=== PATIENT | female | born 1960 | race Caucasian/White ===

== ENCOUNTER → 2017-12-18 | Day surgery (SDC) | payer BC ==
--- NOTE | 2017-12-15 13:59 | Diagnostic Imaging Report ---
PROCEDURE: X-RAY CHEST, TWO VIEWS COMPARISON: 07/27/2007. INDICATIONS: PREOP - LEFT HIP SX FINDINGS: The lungs are well-inflated. No focal consolidation, pleural effusion, or pneumothorax. Cardiomediastinal contour and pulmonary vasculature are within normal limits. No acute osseous abnormality. Surgical clips project over the upper abdomen on the lateral radiograph, likely related to prior cholecystectomy. CONCLUSION: No acute thoracic abnormality. Dictated by: Everardo Terrazas M.D. on 12/15/2017 at 14:09 Electronically approved by: Everardo Terrazas M.D. on 12/15/2017 at 14:09
[~2017-12-18] MED LIST: ADDERALL 30 MG30 MG PO; BUPIVACAINE HCL 0.5% 10ML MPF VIAL INJ ONE; DICYCLOMINE HCL20 MG PO; FENTANYL CITRATE/PF 100MCG/2 ML INJ ONE; HYDROCODON-ACE1 EA11 PO; HYDROCODON-ACE1 EA12 PO; IOPAMIDOL 610MG/1ML 300 MG/ML VIAL IV ONE; LIDOCAINE HCL 1% LOCAL INJ 20 ML VIAL ONE; MIDAZOLAM HCL 2 MG/2 ML VIAL ONE; MIRALAX17 GM PO; NEXIUM40 MG PO; PANTOPRAZOLE SO40 MG PO; PROPOFOL IV EMULSION 10 MG/ML 20 ML VIAL ONE; SENNA-S TABLET1 EA PO; SYNTHROID137 MCG PO; TRIAMCINOLONE ACET 40 MG/ML VIAL ONE; ZOFRAN4 MG PO; [UNRECOGNIZED DRUG - OTHER] PO
--- OUTSIDE RECORDS SUMMARY | 2017-12-18 05:06 | XMS REPORT ---
Author Author [facility] Address Unknown Phone Unavailable Care Team Providers Care Hockey Player Name Role Phone TAINAKATH HUNTER Unavailable Unavailable Problems This patient has no known problems. Allergies, Adverse Reactions, Alerts This patient has no known allergies or adverse reactions. Medications This patient has no known medications. Results Test Description Test Time Test Comments Text Results Atomic Results Result Comments CHEST 2 VIEWS [place] [address] Patient Name: REMBERTO ASHBY MR #: [id number] : 1960 Age/Sex: 57/F Req # : [id number] Adm Physician: Ordered by: JERMAINE MOORE MD Report #: [id number] Location: OR Room/Bed: Procedure: [id number] DX/CHEST 2 VIEWS Exam Date: 12/15/17 Exam Time: 1342 REPORT STATUS: Signed PROCEDURE: X-RAY CHEST, TWO VIEWS COMPARISON: 07/27/2007. INDICATIONS: PREOP - LEFT HIP SX FINDINGS: The lungs are well-inflated. No focal consolidation, pleural effusion, or pneumothorax. Cardiomediastinal contour and pulmonary vasculature are within normal limits. No acute osseous abnormality. Surgical clips project over the upper abdomen on the lateral radiograph, likely related to prior cholecystectomy. CONCLUSION: No acute thoracic abnormality. Dictated by: Kath Rivera M.D. on 12/15/2017 at 14:09 Electronically approved by: Kath Rivera M.D. on 12/15/2017 at 14:09 Dictated By : KATH RIVERA MD 140 Transcribed By: LISA on 12/15/171408 COPY TO: JERMAINE MOORE MD
--- NOTE | 2017-12-18 15:03 | Operative Report ---
DATE OF PROCEDURE: December 18, 2017 PREOPERATIVE DIAGNOSIS: Osteoarthritis, left hip. POSTOPERATIVE DIAGNOSIS: Osteoarthritis, left hip. PROCEDURE: Fluoroscopic-guided corticosteroid injection, left hip. INDICATIONS: The patient is a 57-year-old lady who has arthritic changes in her left hip. The findings and options have been discussed. She does not have such severe arthritis that she would want to go through a hip replacement at this time. She would like to try a corticosteroid injection. The risks and benefits were explained. She stated she understood and wished to proceed. DESCRIPTION OF PROCEDURE: The patient was brought to the procedure room. She was given a MAC anesthetic. Her left hip was prepped and draped in a sterile manner. A preoperative time out was performed. A C-arm image intensifier was used to assist in placing an 18-gauge needle into the inferior recess of the left hip joint. A small amount of synovial fluid was aspirated. Less than 1 mL of radiopaque dye was injected to provide radiographic confirmation of intra-articular placement. A mixture of 10 mL of 1/2 percent Marcaine and 40 mg of Depo-Medrol were then injected into the hip joint. The needle was retrieved, and a Band-Aid was applied. She was transported to the recovery room in stable condition. Job#: [id number]
== END | disposition home or self-care (01) ==
LOC: OR 05:04
PROVIDERS: ATTEND Specialist
DX: M16.12 Unilateral primary osteoarthritis, left hip (principal); E03.9 Hypothyroidism, unspecified; R01.1 Cardiac murmur, unspecified; E78.5 Hyperlipidemia, unspecified; E06.3 Autoimmune thyroiditis; Z01.810 Encounter for preprocedural cardiovascular examination; Z01.818 Encounter for other preprocedural examination; Z87.891 Personal history of nicotine dependence; Z68.34 Body mass index [BMI] 34.0-34.9, adult
CPT/HCPCS: 20610; 71046; 77002; 93005; J2250; J3301; Q9967; J2001

== ENCOUNTER 2019-09-23 06:28 | Inpatient (IN) | payer OTHER ==
[2019-09-19 16:50] LABS: BASOPHILS # (AUTO) 0.1 (0.0-0.1); BASOPHILS % 1.5 % (0.0-1.0); EOSINOPHILS # (AUTO) 0.2 (0.0-0.4); EOSINOPHILS % 2.2 % (0.0-6.0); HEMATOCRIT 42.4 % (34.2-44.1); HEMOGLOBIN 13.9 g/dL (12.0-16.0); LYMPHOCYTES # (AUTO) 2.4 (1.0-3.2); LYMPHOCYTES % 33.9 % (18.0-39.1); MEAN CORPUSCULAR HEMOGLOBIN 28.7 pg (28-32); MEAN CORPUSCULAR HGB CONC 32.8 g/dL (31-35); MEAN CORPUSCULAR VOLUME 87.4 fL (81-99); MONOCYTES # (AUTO) 0.5 (0.2-0.8); NEUTROPHILS % 55.1 % (38.7-80.0); PLATELET COUNT 328 x10e3/uL (140-360); RED BLOOD COUNT 4.85 x10e6/uL (3.6-5.1); RED CELL DISTRIBUTION WIDTH 12.8 % (11.7-14.4)
[2019-09-22 04:00] VITALS: BP 100/49
[~2019-09-23] VITALS: Ht 160 cm; Wt 90.5 kg
[~2019-09-23 06:28] MED LIST changes: +BACITRACIN 50,000 UNIT VIAL ONE; +BIOTIN1000 MCG PO; -BUPIVACAINE HCL 0.5% 10ML MPF VIAL INJ ONE; +ESTRADIOL1 MG PO; -FENTANYL CITRATE/PF 100MCG/2 ML INJ ONE; +FISH OIL 1,0001 EAC2 PO; -IOPAMIDOL 610MG/1ML 300 MG/ML VIAL IV ONE; -LIDOCAINE HCL 1% LOCAL INJ 20 ML VIAL ONE; -MIDAZOLAM HCL 2 MG/2 ML VIAL ONE; +MULTIVITAMINS1 EAC7 PO; -PROPOFOL IV EMULSION 10 MG/ML 20 ML VIAL ONE; +SODIUM CHLORIDE 0.9% 500ML 500 ML ONE; +TRANEXAMIC ACID 1,000 MG/10 ML ML ONE; -TRIAMCINOLONE ACET 40 MG/ML VIAL ONE; +VANCOMYCIN HCL 1 GM VIAL ONE; +VANCOMYCIN HCL 500 MG ONE
[2019-09-23] MEDS ORDERED: DEXAMETHASONE SOD PHOS 10 MG/1 ML VIAL ONE (07:05)
[2019-09-23] MEDS ORDERED: CELECOXIB 200 MG CAP ONE (07:05)
[2019-09-23] MEDS ORDERED: GABAPENTIN 300 MG CAP ONE (07:06)
[2019-09-23] MEDS ORDERED: CLINDAMYCIN PHOS 900MG/ 50ML 50 ML IV ONE (07:25)
[2019-09-23] MEDS ORDERED: ROPIVACAINE 246.25 MG, EPINEPHRINE HCL 1:1000 1ML 0.5 MG, CLONIDINE HCL 0.08 MG, KETORO... INJ ONE ×5 (07:30)
[2019-09-23] MEDS ORDERED: BUPIVACAINE 7.5MG/ML /DEXTROSE 82.5MG/ML 2 ML AMP INJ ONE (07:39)
[2019-09-23] MEDS ORDERED: MORPHINE SULFATE/PF 1 MG/1 ML 10ML VIAL ONE (07:40)
[2019-09-23] MEDS ORDERED: VANCOMYCIN HCL 500 MG ONE (08:09)
[2019-09-23] MEDS ORDERED: TOBRAMYCIN 1.2GM BULK BOTTLE ONE (09:00)
[2019-09-23] MEDS ORDERED: ZOLPIDEM TARTRATE 5 MG TAB PO PRN (10:15)
[2019-09-23] MEDS ORDERED: DIPHENHYDRAMINE HCL INJ 50 MG/ML VIAL IM/IV PRN (10:15)
[2019-09-23] MEDS ORDERED: HYDROCODONE/APAP 7.5MG-325MG 1 EA TAB PO PRN (10:15)
[2019-09-23] MEDS ORDERED: ACETAMINOPHEN 650 MG SUPP PR PRN (10:15)
[2019-09-23] MEDS ORDERED: KETOROLAC TROMETHAMINE 30 MG/ML VIAL IV PRN (10:15)
[2019-09-23] MEDS ORDERED: ONDANSETRON HCL INJ 2MG/ML 2ML 2 MG/ML VIAL IV PRN (10:15)
[2019-09-23] MEDS ORDERED: DOCUSATE SODIUM 100 MG CAP PO PRN (10:15)
[2019-09-23] MEDS ORDERED: HYDROCODONE/APAP 5MG-325MG TAB PO PRN (10:15)
[2019-09-23] MEDS ORDERED: PROMETHAZINE HCL (IM) 25 MG/ML VIAL INJ PRN (10:15)
--- NOTE | 2019-09-23 11:42 | NUR ---
Pt arrived to unit via stretcher, abductor pillow in proper placement. SCD on RLE. Foot pumps applied. Pt is A&O x3, resp WNL. No c/o pain to surgical site. IV to R hand patent, no swelling or redness to insertion site. Family at bedside, VS WNL. Call light within, bed in lowest position. Decreased sensation to RLE.
--- NOTE | 2019-09-23 11:47 | Diagnostic Imaging Report ---
EXAMINATION: PELVIS AP 1-2 VIEWS INDICATION: Postoperative COMPARISON: None FINDINGS: Portable AP radiograph of the pelvis demonstrates postoperative findings of left total hip replacement. Alignment is anatomic. No unexpected fracture. Small amount of postoperative subcutaneous soft tissue emphysema. Surgical skin chadwick overlie the soft tissues lateral to the left hip. Mild degenerative changes of the [place] right hip joint. IMPRESSION: Anatomic alignment status post left total hip replacement. Signed by: Saskia Aguiar MD on 09/23/2019 11:44 AM
[2019-09-23 12:17] VITALS: BP 101/62
[2019-09-23] MEDS: ACETAMINOPHEN 1000 MG/100 ML IV SCH ×2 (12:34→19:10)
--- NOTE | 2019-09-23 12:35 | NUR ---
Voicemail left for Dr. Dye regarding new patient, routine consult per Dr. Lyle. Awaiting call back.
[2019-09-23 12:42] VITALS: BP 101/62
[2019-09-23 12:43] VITALS: BP 101/62
[2019-09-23 12:44] VITALS: BP 101/62
--- NOTE | 2019-09-23 13:07 | NUR ---
DR MAGANA OFFICE PREARRANGED FOLLOWING DISCHARGE PLAN OF: HOME HEALTH WITH [facility] [phone] WITH Sydni CASTRO 3 IN ONE COMMODE. AND ROLLING WALKER WITH WHEELS. PROVIDED BY [employer]. Already delivered per Pt.
--- NOTE | 2019-09-23 13:08 | NUR ---
PATIENT ADDRESS WHERE SERVICE WILL BE RECEIVED: [address] [place] [address] PATIENT CONTACT NUMBER: [phone] (cell) NAME OF HOME HEALTH COMPANY: [facility] TELEPHONE/FAX NUMBER OF COMPANY: [phone] ADDRESS OF COMPANY: [address] [place] [address] SERVICES TO RECEIVE: Skilled Nurse eval and treat and Physical therapy: 5 times a week for 2 weeks, then 3 times a week for 2 weeks. Exercise, Active ROM, Passive ROM, Home Exercise Program, Stretching ANTICIPATED DATE SERVICES WILL BEGIN: 09/25/19
--- NOTE | 2019-09-23 13:21 | Operative Report ---
DATE OF PROCEDURE: 09/23/2019 SURGEON: Everardo Lyle MD COMPUTER EDUCATION PROFESSOR: Charles Parks, certified PA. PREOPERATIVE DIAGNOSIS: Osteoarthritis, left hip. POSTOPERATIVE DIAGNOSIS: Osteoarthritis, left hip. PROCEDURE: Left total hip arthroplasty. INDICATIONS: The patient is a 59-year-old lady with a long history of left hip pain. She has failed conservative management. This has included a fluoroscopic-guided corticosteroid injection in the hip. This provided significant, but only temporary relief of her pain. She also has ongoing back issues. We have discussed her options at length. She would like to proceed with a left total hip replacement. She understands this is not going to resolve her back issues and, in some cases, back pain can increase after hip replacements. All of this has been explained. She states she understands and wishes to proceed. DESCRIPTION OF PROCEDURE: The patient was brought to the operating room and given a spinal anesthetic. This was augmented with some IV sedation. She was positioned in the right lateral decubitus position. Her left hip was prepped and draped in a sterile manner. A preoperative time-out was performed. A posterior approach was made to the left hip. Surprising amount of subcutaneous adipose tissue was encountered. The deep fascia and gluteal fascia were incised. A deep Charnley retractor was placed. This had to be augmented with additional self-retaining retractors. The posterior capsule was carefully exposed. Given her age, her muscles were bulky and visualization of this deep surgical field was challenging. The short external rotators were released. The posterior capsule was released. Hemostasis was carefully obtained with electrocautery. The hip was dislocated. Additional retractors were placed as visibility in the wound remained quite challenging and deep. An oscillating saw was used to resect the femoral head. The femoral head was noted to have degenerative and irregular changes of the articular cartilage. Acetabular retractors were carefully placed. Once again, this was challenging. Additional self-retaining retractors were placed. A long handle knife and a Bovie with an extended tip was used to resect the labrum and soft tissue at the base of the socket. A 46 mm reamer was then used to establish the true floor of the socket. The socket was not large and a 51 mm reamer accomplished bleeding hemispherical cancellous bone. The hip was thoroughly irrigated with a shower tip pulsatile lavage. Because of her allergies, we were only able to spray the hip with a diluted mixture of tobramycin. A [employer] OsseoTi 52 mm outer diameter socket was then impacted into place. Fixation was augmented with a single 20 mm screw. A highly cross-linked polyethylene liner with a 36 mm inner diameter was then seated. Care was taken to make sure that there was no evidence of soft tissue interposition. The socket was packed with a moistly soaked lap sponge and attention was directed towards the proximal femur. A box cutting osteotome was used to establish entry to the femoral canal. Taper pin reamers were placed. The Taperloc broaches were impacted. A #7 stem had good canal fill for trial reduction. This felt excessively tight with a standard 36 mm head. I went back and seated a #6 stem. A calcar reamer was used to remove additional femoral neck. Trial reductions were performed. A standard 36 mm head was felt to provide optimal soft tissue balancing, mormon of limb length and stability. It also felt tight in extension. A -3 neck was trialed. This resulted in some anterior impingement and hinging of the stem in flexion and internal rotation. The trial implants were then removed. The hip was further irrigated. A 100 mL premixed pericapsular MANUELA injection was placed into the surrounding soft tissue. The #6 stem was seated and a standard 36 mm head was placed onto the stem. Care was taken to make sure that the trunnion of the stem was clean and dry at the time if seating the femoral head. A ceramic head was chosen. A final reduction was performed. The posterior capsule was repaired with #2 Ethibond. Tobramycin powder was then sprinkled into the joint. The deep fascia was closed with interrupted #2 Ethibond. The skin was closed with subcuticular Vicryl and chadwick. A sterile bandage was applied. The patient was returned to the supine position. She was transported to the recovery room in stable condition. Blood loss was approximately 150 mL. All needle and sponge counts were correct. Everardo Lyle MD DR/DUANE /[id number] ANAMARIA
[2019-09-23] MEDS ORDERED: PROMETHAZINE 12.5MG/ NACL 0.9% 50 ML IV PRN (16:30)
[2019-09-23] MEDS ORDERED: SODIUM CHLORIDE 0.9% 50ML 50 ML ONE (18:02)
[2019-09-23] MEDS: CLINDAMYCIN PHOS 900MG/ 50ML 50 ML IV SCH (18:13)
[2019-09-23] MEDS: ASPIRIN 325 MG TAB PO SCH (18:13)
[2019-09-23] MEDS: CELECOXIB 200 MG CAP PO SCH (18:13)
--- NOTE | 2019-09-23 19:00 | NUR ---
RECEIVED PATIENT IN BEDSIDE REPORT. PATIENT RESTING IN BED, PAIN CONTROLLED AT THIS TIME. NO S&S OF DISTRESS NOTED. AQUACELL DRESSING TO L HIP C/D/I. PAU HOSE TO R LEG, FOOT PUMPS ACTIVE, LEG ABDUCTOR IN PLACE. PATIENT VERBALIZED HIP PRECAUTIONS, WILL CONTINUE TO REMIND PATIENT DURING MOVEMENT. BED LOCKED IN LOWEST POSITION, SIDE RAILS UPX2, CALL LIGHT IN REACH.
[2019-09-23] MEDS ORDERED: LIDOCAINE HCL 2% LOCAL INJ 5 ML SDV VIAL INJ ONE (19:20)
[2019-09-23] MEDS ORDERED: PROPOFOL IV EMULSION 10 MG/ML 20 ML VIAL ONE (19:20)
[2019-09-23] MEDS ORDERED: MIDAZOLAM HCL 2 MG/2 ML VIAL ONE (19:20)
[2019-09-23] MEDS ORDERED: FENTANYL CITRATE/PF 100MCG/2 ML INJ ONE (19:20)
[2019-09-23 20:00] VITALS: BP 97/54
--- NOTE | 2019-09-23 20:20 | NUR ---
PATIENT REPORTS SHE VOMITED, ABOUT 150 ML NOTED IN EMESIS BAG. STATES SHE FEELS MUCH BETTER NOW AND DOES NOT WANT ZOFRAN. PATIENT BELIEVES IT IS THE IV TYLENOL CAUSING THE NAUSEA AND DOES NOT WANT FURTHER DOSES.
[2019-09-24] VITALS: BP 99/45
[2019-09-24] MEDS: CLINDAMYCIN PHOS 900MG/ 50ML 50 ML IV SCH ×2 (01:06→09:28)
[2019-09-24 01:09] VITALS: BP 97/54
[2019-09-24 05:40] LABS: HEMATOCRIT 33.9 % (34.2-44.1); HEMOGLOBIN 11.1 g/dL (12.0-16.0)
[2019-09-24] MEDS: ACETAMINOPHEN 1000 MG/100 ML IV SCH ×2 (06:00)
[2019-09-24 07:51] VITALS: BP 104/54
[2019-09-24] MEDS: ASPIRIN 325 MG TAB PO SCH (08:48)
[2019-09-24 08:50] VITALS: BP 104/54
[2019-09-24] MEDS ORDERED: AMPHET PO SCH (09:00)
[2019-09-24] MEDS ORDERED: NON-FORMULARY MEDICATION (Omega-3 Fatty Acids/Fish Oil (Fish Oil 1,000 Mg Capsule) 1 CAP) PO SCH (09:00)
[2019-09-24] MEDS ORDERED: ESTRADIOL 1 MG TAB PO SCH (09:00)
[2019-09-24] MEDS ORDERED: LEVOTHYROXINE SODIUM PO SCH (09:00)
[2019-09-24] MEDS ORDERED: D AMPHET PO SCH (09:00)
[2019-09-24] MEDS ORDERED: MULTIVITAMINS/MINERALS TAB PO SCH (09:00)
[2019-09-24] MEDS ORDERED: LEVOTHYROXINE SODIUM 25 MCG TABLET PO SCH (09:00)
[2019-09-24] MEDS ORDERED: LEVOTHYROXINE SODIUM 112 MCG TAB PO SCH (09:00)
[2019-09-24] MEDS ORDERED: AMPHET ASP PO SCH (09:00)
[2019-09-24] MEDS ORDERED: OMEGA 3 POLYUNSAT FATTY ACIDS 1000 MG SOFTGEL PO SCH (10:00)
[2019-09-24] MEDS: CELECOXIB 200 MG CAP PO SCH (10:07)
[2019-09-24] MEDS ORDERED: ACETAMINOPHEN 1000 MG/100 ML IV PRN (10:15)
[2019-09-24 11:14] VITALS: BP 98/49
--- NOTE | 2019-09-24 12:28 | Consultation ---
DATE OF CONSULTATION: PRIMARY CARE PHYSICIAN: Dr. Bud Dye. HEATING AND AIR CONDITIONING MECHANIC: Dr. Bud Dye. REASON FOR CONSULTATION: Medical management. HISTORY OF PRESENT ILLNESS: The patient is a 59-year-old female with and hypothyroidism. The patient also has progressive osteoarthritis. She was on outpatient treatments for pain control for multiple years now, but the patient's pain much worsened for the past month and required surgical intervention. The patient is now status post left total hip arthroplasty. The patient is otherwise stable. Hemoglobin and hematocrit stable at this time. PAST MEDICAL HISTORY: , hypertension, diet control hypothyroidism. PAST SURGICAL HISTORY: Hysterectomy, partial colon resection, hammertoe surgery, carpal tunnel surgery, urinary bladder suspension, cholecystectomy, and kidney stones. SOCIAL HISTORY: The patient does not smoke or use alcohol. No regular drugs. ALLERGIES: TO CODEINE, PENICILLIN, AND VANCOMYCIN. HOME MEDICATIONS: Estradiol, levothyroxine, Adderall, multivitamins, fish oil and supplement. PHYSICAL EXAMINATION: VITAL SIGNS: Temperature is 98, blood pressure is 104/54, pulse rate 71, and respirations 18. GENERAL: The patient is awake. She is alert. distress. HEENT: Normocephalic and atraumatic. Pupils reactive. Anicteric. NECK: Supple grossly. PULMONARY: Clear. CARDIOVASCULAR: Regular rate and rhythm. ABDOMEN: Soft. EXTREMITIES: Now status post left hip replacement. NEUROLOGIC: No focal deficit. LABORATORY DATA: Hemoglobin and hematocrit are 11.1 and 33.9. IMPRESSION: 1. Status post postoperative day #1 left total hip arthroplasty. 2. Baseline hypertension, dyslipidemia, and hypothyroidism. PLAN: Continue with home medications. PT/OT. The patient should be able to go home soon. Once discharge, the patient should resume home medication. MD KORINA Kaplan/DUANE /[id number]
[2019-09-24] MEDS ORDERED: NORCO 7.5-3251 EACH PO (13:54)
--- NOTE | 2019-09-24 14:20 | NUR ---
discharge instructions and prescriptions given pt verbalized understanding iv dc pressure dressing applied left hip dressing remains dry pt is getting dressed at this time
--- NOTE | 2019-09-24 14:38 | NUR ---
PT OFF UNIT TO HOME AT THIS TIME
== END 2019-09-24 14:30 | disposition home health service (06) | DRG 470 ==
LOC: OR 06:28 → PACU V 10:14 → MED/SURG 11:40
PROVIDERS: ADMIT Specialist; ATTEND Specialist
PROC: 0SRB0JZ Replacement of Left Hip Joint with Synthetic Substitute, Open Approach (ICD-10-PCS; principal; 2019-09-23 08:30)
DX: M16.12 Unilateral primary osteoarthritis, left hip (principal); E03.9 Hypothyroidism, unspecified; I10 Essential (primary) hypertension; E78.5 Hyperlipidemia, unspecified; E66.9 Obesity, unspecified; Z68.35 Body mass index [BMI] 35.0-35.9, adult; Z88.1 Allergy status to other antibiotic agents; Z88.5 Allergy status to narcotic agent; Z88.0 Allergy status to penicillin
CPT/HCPCS: 36415; 72170; 85014; 85018; 85025; 86850; 86900; 86920; 93005; 97139; J0171; J1100; J1885; J2001; J2250; J2405; J2795; J3010; J3370; J7040